=== PATIENT | female | born 1985 | race Two or more races ===

== ENCOUNTER 2018-02-09 15:30 | Emergency (ER) | payer OTHER ==
[2018-02-09 15:37] VITALS: BP 111/69
--- NOTE | 2018-02-09 15:53 | ER Document Report ---
HPI - HPI Patient complains to provider of: back pain Onset: Other - years Quality of pain: Sharp Severity: Moderate Pain Level: 3 Context: Patient presents emergency department with complaints of low back pain that radiates down both legs. Patient reports she has had back pain for years. She moved here from [place]. She denies recent injury. Denies straining her back at work. Denies urinary bowel incontinence or retention. Denies fever vomiting diarrhea. Denies dysuria. Patient reports she thinks she just moved wrong and she is having a sharp pain that goes down both legs. She reports this is her typical back pain flare up. Associated Symptoms: None Exacerbated by: Denies Relieved by: Denies Similar symptoms previously: Yes Recently seen / treated by doctor: No - REPRODUCTIVE LMP: 01/26/18 Past Medical History - General Information source: Patient Last Menstrual Period: last month, denies - Social History Smoking Status: Unknown if Ever Smoked Cigarette use (# per day): No Frequency of alcohol use: None Drug Abuse: None Occupation: [employer] Family History: DM Patient has suicidal ideation: No Patient has homicidal ideation: No Pulmonary Medical History: Reports: Hx Asthma Surgical Hx: Negative Vertical Provider Document - CONSTITUTIONAL Agree With Documented VS: Yes Exam Limitations: No Limitations General Appearance: WD/WN, No Apparent Distress - INFECTION CONTROL TRAVEL OUTSIDE OF THE U.S. IN LAST 30 DAYS: No - HEENT HEENT: Atraumatic, Normocephalic - NECK Neck: Normal Inspection, Supple. negative: Lymphadenopathy-Left, Lymphadenopathy-Right - RESPIRATORY Respiratory: Breath Sounds Normal, No Respiratory Distress, Chest Non-Tender - CARDIOVASCULAR Cardiovascular: Regular Rate - GI/ABDOMEN Gastrointestinal: Abdomen Soft, Abdomen Non-Tender - BACK Back: Normal Inspection - No obvious deformity good distal movement sensation reports low midline back pain radiating to both legs. Full range of motion, reflexes intact - MUSCULOSKELETAL/EXTREMETIES Musculoskeletal/Extremeties: [place] - NEURO Level of Consciousness: Awake, Alert, Appropriate Motor/Sensory: No Motor Deficit - DERM Integumentary: Warm, Dry Adult Front & Back Diagram: 1 - reports pain 2 - radiates down bilateral legs 3 - radiates lorena legs Course - Re-evaluation Re-evalutation: 02/09/18 16:11 pt provided with list of pcp. instructed on tylenol or motrin. - Vital Signs Vital signs: Temp Pulse Resp BP Pulse Ox 99.1 F 95 18 111/69 98 02/09/18 15:36 02/09/18 15:36 02/09/18 15:36 02/09/18 15:36 02/09/18 15:36 Discharge - Discharge Clinical Impression: Chronic back pain Condition: Stable Instructions: Family Physicians / Practices, Ice Packs ([facility]), Low Back Pain ( [facility]), Warm Packs ([facility]) Additional Instructions: *You have been evaluated for chronic back pain *Take tylenol or motrin as indicated for pain *Rest/Ice packs then warm packs as indicated *Follow up with a primary care provider within one week for recheck *Return to ED for worsening condition, changes, needs
== END 2018-02-09 16:05 | disposition home or self-care (01) ==
LOC: ER 15:30
DX: G89.29 Other chronic pain (principal); M54.5 Low back pain; J45.909 Unspecified asthma, uncomplicated
CPT/HCPCS: 99283

== ENCOUNTER 2018-10-06 18:13 | Emergency (ER) | payer OTHER ==
[2018-10-06] MEDS ORDERED: ONDANSETRON HCL INJ/PF 4 MG/2 ML SDV IV ONE (18:50)
[2018-10-06] MEDS ORDERED: KETOROLAC TROMETHAMINE INJ/PF 30 MG/1 ML SDV IV ONE (18:50)
[2018-10-06] MEDS ORDERED: NORMAL SALINE 1000 ML 1,000 ML IV ONE (18:52)
[2018-10-06 18:54] LABS: ABSOLUTE BASOPHILS # (AUTO) 0.1 10^3/uL (0.0-0.2); ABSOLUTE EOSINOPHILS # (AUTO) 0.3 10^3/uL (0.0-0.6); ABSOLUTE LYMPHOCYTES (AUTO) 2.6 10^3/uL (0.5-4.7); ABSOLUTE MONOCYTES (AUTO) 0.8 10^3/uL (0.1-1.4); ABSOLUTE NEUT (AUTO) 8.5 10^3/uL (1.7-8.2); BASOPHILS % (AUTO) 0.4 % (0-2); EOSINOPHILS % (AUTO) 2.4 % (0-6); HEMOGLOBIN 12.1 g/dL (12.0-15.5); LYMPHOCYTES % (AUTO) 21.1 % (13-45); MEAN CORPUSCULAR HGB CONC 32.6 g/dL (32.0-36.0); MEAN CORPUSCULAR VOLUME 83 fl (80-97); MONOCYTES % (AUTO) 6.7 % (3-13); PLATELET COUNT 254 10^3/uL (150-450); RED BLOOD COUNT 4.47 10^6/uL (3.72-5.28); RED CELL DISTRIBUTION WIDTH 13.1 % (11.5-14.0); SEGMENTED NEUTROPHILS % (AUTO) 69.4 % (42-78); TOTAL CELLS COUNTED % (AUTO) 100 %; WHITE BLOOD COUNT 12.2 10^3/uL (4.0-10.5)
--- NOTE | 2018-10-06 18:54 | ER Document Report ---
ED General - General Chief Complaint: Abdominal Pain Stated Complaint: ABDOMINAL PAIN Time Seen by Provider: 10/06/18 18:37 Notes: Patient is a 33-year old female without chronic medical problems, no prior abdominal surgical history, presents complaining of right flank and right upper abdominal pain that started earlier today while at work. Patient states that this started after she bent over, felt like she pulled something and has been co nstant since that time. Notes a throbbing, aching, constant pain. Moving seems to worsen the pain. Nothing improves the pain and she has tried Tylenol for relief. No history of similar symptoms in the past. States that she did have one episode of nausea and vomiting. Denies pleuritic pain or shortness of breath. No history of DVT or pulmonary embolus. Does not take any form of estrogen. Has not seen her primary care doctor regarding today's concerns. TRAVEL OUTSIDE OF THE U.S. IN LAST 30 DAYS: No - Related Data Allergies/Adverse Reactions: No Known Allergies Allergy (Verified 02/09/18 15:31) Past Medical History - General Information source: Patient - Social History Smoking Status: Never Smoker Chew tobacco use (# tins/day): No Frequency of alcohol use: None Drug Abuse: None Lives with: Family Family History: DM Patient has suicidal ideation: No Patient has homicidal ideation: No Pulmonary Medical History: Reports: Hx Asthma Renal/ Medical History: Denies: Hx Peritoneal Dialysis Review of Systems - Review of Systems Notes: Constitutional: Negative for fever. HENT: Negative for sore throat. Eyes: Negative for visual changes. Cardiovascular: Negative for chest pain. Respiratory: Negative for shortness of breath. Gastrointestinal: Positive for abdominal pain, flank pain and vomiting Genitourinary: Negative for dysuria. Musculoskeletal: Negative for back pain. Skin: Negative for rash. Neurological: Negative for headaches, weakness or numbness. 10 point ROS negative except as marked above and in HPI. Physical Exam - Vital signs Vitals: Resp 19 10/06/18 18:27 Interpretation: Normal Notes: PHYSICAL EXAMINATION: GENERAL: Appears moderately uncomfortable but in no acute distress HEAD: Atraumatic, normocephalic. EYES: Pupils equal round and reactive to light, extraocular movements intact, sclera anicteric, conjunctiva are normal. ENT: nares patent, oropharynx clear without exudates. Moderately dry mucous membranes. NECK: Normal range of motion, supple without lymphadenopathy LUNGS: Breath sounds clear to auscultation bilaterally and equal. No wheezes rales or rhonchi. HEART: Regular rate and rhythm without murmurs ABDOMEN: Soft, mild tenderness the right upper quadrant and right flank but no other localized areas of tenderness, normoactive bowel sounds. No guarding, no rebound. No masses appreciated. EXTREMITIES: Normal range of motion, no pitting or edema. No cyanosis. NEUROLOGICAL: No focal neurological deficits. Moves all extremities spontaneously and on command. PSYCH: Normal mood, normal affect. SKIN: Warm, Dry, normal turgor, no rashes or lesions noted. Course - Re-evaluation Re-evalutation: 10/06/18 18:53 Patient presents with right upper quadrant and right flank pain with associated nausea and vomiting that started earlier today, has been ongoing since that time. On my assessment the patient has focal tenderness the right upper quadrant but none to the right flank. The patient reports that she had multiple episodes of vomiting earlier today. No obvious trigger for today's symptoms. Patient's vitals are within acceptable limits at the time of my assessment. PERC criteria negative, low clinical suspicion for acute pulmonary embolus. Will proceed with right upper quadrant ultrasound, labs, symptomatic control and reassess. 10/06/18 21:24 Patient is completely pain-free. Has tolerated oral intake without difficulty. Denies any ongoing symptoms. Right upper quadrant ultrasound is normal. Labs are unremarkable without evidence of any acute findings and a possible urinary tract infection which could account for some of the patient's flank tenderness although does not show findings consistent with pyelonephritis. Urine culture has been sent. Patient be started on oral cephalexin. At this time will discharge with return precautions and follow-up recommendations. Verbal discharge instructions given a the bedside and opportunity for questions given. Medication warnings reviewed. Patient is in agreement with this plan and has verbalized understanding of return precautions and the need for primary care follow-up in the next 24-72 hours. - Vital Signs Vital signs: Temp Pulse Resp BP Pulse Ox 98.8 F 17 124/68 99 10/06/18 18:32 10/06/18 22:02 10/06/18 22:02 10/06/18 22:02 - Laboratory Result Diagrams: 10/06/18 16:25 10/06/18 16:25 Laboratory results interpreted by me: 10/06/18 10/06/18 10/06/18 16:25 16:25 18:25 WBC 12.2 H Absolute Neutrophils 8.5 H Glucose 116 H Total Bilirubin 0.1 L Urine Blood LARGE H Ur Leukocyte Esterase MODERATE H - Diagnostic Test Radiology reviewed: Reports reviewed Discharge - Discharge Clinical Impression: Right flank pain Nausea and vomiting Qualifiers: Vomiting type: unspecified Vomiting Intractability: non-intractable Qualified Code(s): R11.2 - Nausea with vomiting, unspecified Urinary tract infection Qualifiers: Urinary tract infection type: acute cystitis Hematuria presence: with hematuria Qualified Code(s): N30.01 - Acute cystitis with hematuria Condition: Good Disposition: HOME, SELF-CARE Additional Instructions: You have been seen in the Emergency Department (ED) for abdominal pain. Your evaluation did not identify a clear cause of your symptoms but was generally reassuring. Please follow up with your doctor as soon as possible regarding today's emergent visit and the symptoms that are bothering you. Return to the ED if your abdominal pain worsens or fails to improve, you develop bloody vomiting, bloody diarrhea, you are unable to tolerate fluids due to vomiting, fever greater than 101, or other symptoms that concern you. Your urine shows findings consistent with a urinary tract infection. Please take all the antibiotics as directed even if your symptoms have improved. Return to emergency room if you develop fever >101F, persistent vomiting, become lethargic, have severe pain in your sides, or any other symptoms that are concerning to you. Prescriptions: Cephalexin Monohydrate [Keflex 500 mg Capsule] 500 mg PO Q6H 5 Days capsule
[2018-10-06 18:58] LABS: ALANINE AMINOTRANSFERASE 26 U/L (9-52); ALBUMIN 4.8 g/dL (3.5-5.0); ALKALINE PHOSPHATASE 82 U/L (38-126); ANION GAP 11 (5-19); ASPARTATE AMINO TRANSFERASE 28 U/L (14-36); BILIRUBIN,DIRECT 0.1 mg/dL (0.0-0.4); BILIRUBIN,TOTAL 0.1 mg/dL (0.2-1.3); BLOOD UREA NITROGEN 11 mg/dL (7-20); CALCIUM 9.8 mg/dL (8.4-10.2); CARBON DIOXIDE 27 mmol/L (22-30); CHLORIDE 102 mmol/L (98-107); GLUCOSE 116 mg/dL (75-110); LIPASE 134.9 U/L (23-300); SODIUM 140.1 mmol/L (137-145); TOTAL PROTEIN 7.8 g/dL (6.3-8.2)
[2018-10-06 19:39] LABS: APPEARANCE,URINE CLEAR; BILIRUBIN,URINE NEGATIVE (NEGATIVE); COLOR,URINE COLORLESS; GLUCOSE, URINE NEGATIVE (NEGATIVE); KETONES,URINE NEGATIVE (NEGATIVE); LEUKOCYTE ESTERASE,URINE MODERATE (NEGATIVE); NITRITE,URINE NEGATIVE (NEGATIVE); PROTEIN,URINE NEGATIVE (NEGATIVE); URINE SPECIFIC GRAVITY 1.002; UROBILINOGEN,URINE NEGATIVE mg/dL (<2.0)
--- NOTE | 2018-10-06 20:46 | RADIOLOGY REPORT (SQ) ---
EXAM DESCRIPTION: US ABDOMEN LIMITED COMPLETED DATE/TME: 10/06/2018 18:50 CLINICAL HISTORY: 33 years, Female, ruq pain Findings: Aorta and IVC are within normal limits. Liver is within normal limits with no focal lesions. Portal vein is patent with hepatopedal flow. Gallbladder is unremarkable with no evidence for calculus, wall thickening or pericholecystic fluid. No significant biliary dilatation with CBD measuring 2 mm. No right hydronephrosis. No right upper quadrant ascites. IMPRESSION: No evidence for cholelithiasis or cholecystitis. No acute pathology.
[2018-10-06] MEDS ORDERED: CEPHALEXIN 500 MG CAPSULE PO ONE (21:25)
[2018-10-06 22:13] VITALS: BP 124/68
== END 2018-10-06 22:21 | disposition home or self-care (01) ==
LOC: ER 18:13
DX: N30.01 Acute cystitis with hematuria (principal); R10.11 Right upper quadrant pain; R11.2 Nausea with vomiting, unspecified
CPT/HCPCS: 99284; 96361; 96374; 96375; 36415; 87086; 83690; 84703; 85025; 87088; 80053; 81001; 87186; 76705; J1885; J2405; J7030

== ENCOUNTER 2018-11-12 16:26 | Emergency (ER) | payer SELFPAY ==
[2018-11-12] MEDS ORDERED: ONDANSETRON HCL INJ/PF 4 MG/2 ML SDV IV ONE (17:59)
[2018-11-12] MEDS ORDERED: MORPHINE SULFATE 10 MG/ML INJ IV ONE ×3 (18:06→22:02)
--- NOTE | 2018-11-12 18:06 | ER Document Report ---
ED Medical Screen (RME) - General Chief Complaint: Head Injury with LOC Stated Complaint: FALL Time Seen by Provider: 11/12/18 17:49 Mode of Arrival: Ambulatory Information source: Patient TRAVEL OUTSIDE OF THE U.S. IN LAST 30 DAYS: No - HPI Patient complains to provider of: left eye injury Onset: Just prior to arrival Notes: 11/12/18 18:03 Patient here with complaints of left orbital pain after slipping and falling at home on some water and striking her left eye on the counter. She states that she had loss of consciousness with this. She complained of significant left eye pain. She states that she felt like she could see out of the eye before it swelled shut. She has had several episodes of nausea vomiting. She denies any neck, back, chest, abdominal pain. States that she has photophobia, but this is chronic. This started prior to the injury. She denies any other injuries or complaints. Exam nontoxic, no distress. Large left orbital contusion/hematoma with tenderness. No laceration. Extremely difficult to evaluate the globe due to pain. I attempted to look at the eye more thoroughly and the patient started vomiting. No cervical spine tenderness. No focal neurological deficits. Not able to fully evaluate the left globe. Plan CT of the orbit and brain. IV for Zofran and pain medication. An initial examination was made on the patient as part of the triage process, and it was determined a more comprehensive evaluation was necessary. Initial labs were ordered and patient was transferred to another provider in the ED who assumed care and finished evaluation and plan. - Related Data Allergies/Adverse Reactions: No Known Allergies Allergy (Verified 02/09/18 15:31) Past Medical History - Social History Frequency of alcohol use: Heavy Drug Abuse: None Pulmonary Medical History: Reports: Hx Asthma Renal/ Medical History: Denies: Hx Peritoneal Dialysis Physical Exam - Vital signs Vitals: Temp Pulse Resp BP Pulse Ox 98.0 F 64 18 132/89 H 100 11/12/18 17:03 11/12/18 17:03 11/12/18 17:03 11/12/18 17:03 11/12/18 17:03 Course - Vital Signs Vital signs: Temp Pulse Resp BP Pulse Ox 98.0 F 64 18 132/89 H 100 11/12/18 17:03 11/12/18 17:03 11/12/18 17:03 11/12/18 17:03 11/12/18 17:03
--- NOTE | 2018-11-12 19:15 | RADIOLOGY REPORT (SQ) ---
EXAM DESCRIPTION: CT HEAD WITHOUT COMPLETED DATE/TIME: 11/12/2018 6:51 pm REASON FOR STUDY: head injury COMPARISON: None. TECHNIQUE: Axial images acquired through the brain without intravenous contrast. Images reviewed wi th bone, brain and subdural windows. Additional sagittal and coronal reconstructions were generated. Images stored on PACS. All CT scanners at this facility use dose modulation, iterative reconstruction, and/or weight based d osing when appropriate to reduce radiation dose to as low as reasonably achievable (ALARA). [facility]: Dose Right [facility]: CareDose [facility]: Dose Right [facility]: Teradose 4D [facility]: Voucherlink RADIATION DOSE: CT Rad equipment meets quality standard of care and radiation dose reduction techniq ues were employed. CTDIvol: 53.2 mGy. DLP: 1070 mGy-cm. mGy. LIMITATIONS: None. FINDINGS: VENTRICLES: Normal size and contour. CEREBRUM: No masses. No hemorrhage. No midline shift. No evidence for acute infarction. Normal gra y/white matter differentiation. No areas of low density in the white matter. CEREBELLUM: No masses. No hemorrhage. No alteration of density. No evidence for acute infarction. EXTRAAXIAL SPACES: No fluid collections. No masses. ORBITS AND GLOBE: No intra- or extraconal masses. Normal contour of globe without masses. CALVARIUM: Fracture of the floor of the left orbit without entrapment of the extra-ocular muscle. Min imally depressed fracture of the left lamina papyracea. No additional fracture is visualized. PARANASAL SINUSES: Hyperattenuating air-fluid level of the left maxillary sinus which may represent b lood products. Mucoperiosteal thickening of the ethmoid air cells. SOFT TISSUES: Extensive left periorbital soft tissue swelling extending inferiorly over the left maxi llary sinus. OTHER: No other significant finding. IMPRESSION: 1. No acute intracranial hemorrhage. 2. Fracture of the floor of the left orbit with blood products within the left maxillary sinus. 3. Minimally depressed fracture of the left lamina papyracea. 4. Extensive left periorbital soft tissue swelling. EVIDENCE OF ACUTE STROKE: NO. COMMENT: Quality ID # [id number]: Final reports with documentation of one or more dose reduction techniques (e.g., Automated exposure control, adjustment of the mA and/or kV according to patient size, use of iterative reconstruction technique) TECHNICAL DOCUMENTATION: JOB ID: [id number] [employer]- All Rights Reserved Reading location - IP/workstation name: [email or web address]
[2018-11-12] MEDS ORDERED: ONDANSETRON HCL INJ/PF 4 MG/2 ML SDV ONE (20:43)
[2018-11-12] MEDS ORDERED: PROMETHAZINE HCL INJ 25 MG/1 ML VIAL IV ONE (22:02)
--- NOTE | 2018-11-13 01:50 | ER Document Report ---
ED General - General Chief Complaint: Head Injury with LOC Stated Complaint: FALL Time Seen by Provider: 11/12/18 17:49 Primary Care Provider: AROLDO PRADO DO [ACTIVE STAFF] - Follow up tomorrow MARCO FLOWERS MD [ACTIVE STAFF] - Follow up tomorrow ARDEN DEL ROSARIO MD [ACTIVE STAFF] - Follow up in 3-5 days Mode of Arrival: Ambulatory Notes: Patient is a pleasant 33-year-old female who presents with complaint of walking into the kitchen and slipping on a wet spot in the landing and hitting the left side of face and head. She denies being any blood thinning medications. She complains of pain around the left eye. She says the eye itself is not very painful but she feels as if there is some pressure around the eye. She denies other complaints at this time. Eyes any neck pain or back pain. No extremity pain or injuries. TRAVEL OUTSIDE OF THE U.S. IN LAST 30 DAYS: No - Related Data Allergies/Adverse Reactions: No Known Allergies Allergy (Verified 02/09/18 15:31) Past Medical History - General Information source: Patient - Social History Smoking Status: Never Smoker Frequency of alcohol use: Occasional Drug Abuse: None Family History: DM Patient has suicidal ideation: No Patient has homicidal ideation: No Pulmonary Medical History: Reports: Hx Asthma Renal/ Medical History: Denies: Hx Peritoneal Dialysis Review of Systems - Review of Systems Notes: My Normal Review Basic REVIEW OF SYSTEMS: CONSTITUTIONAL : Denies fever, chills, or sweats. Denies recent illness. EENT: Pain to left side of face. MUSCULOSKELETAL: No neck or back pain SKIN: Denies rash or skin lesions. HEMATOLOGIC : Denies easy bruising or bleeding. NEUROLOGICAL: Probable loss of consciousness. Has a headache. Denies weakness or paralysis or loss of use of either side. Denies problems with gait or speech. Denies sensory or motor loss. ALL OTHER SYSTEMS REVIEWED AND NEGATIVE. Physical Exam - Vital signs Vitals: Temp Pulse Resp BP Pulse Ox 98.0 F 64 18 132/89 H 100 11/12/18 17:03 11/12/18 17:03 11/12/18 17:03 11/12/18 17:03 11/12/18 17:03 - Notes Notes: General Appearance: Well nourished, alert, cooperative, no acute distress, mild obvious discomfort. Vitals: reviewed, See vital signs table. Head: Mild swelling around the left eye. No swelling around the jaw or lower face. Eyes: PERRL, EOMI, patient does have some subconjunctival hemorrhage of the left eye. Pupils normal size and shape. Superbly reactive to light. She has good extraocular motion in all directions. Eyelids are swollen. Initial intraocular pressure is 30. Mouth: No decreasd moisture Neck: Supple, no neck tenderness, No neck swelling Extremities: good pulses in all extremities, no swelling or tenderness in the extremities Skin: warm, dry, appropriate color, no rash Neuro: speech clear, oriented x 3, normal affect, responds appropriately to ques tions. Renal nerves II through XII are intact. Patient moves all extremities without difficulty. Distal sensation intact. Course - Re-evaluation Re-evalutation: 11/13/18 01:48 Patient does have orbital floor fracture and lamina papyracea fracture of the left eye. Eye is swollen shut but was able to open the eyelid using modified paperclips. Patient says she has some slight blurred blurred vision. She has little bit of pain with extraocular motion but does have full extraocular motion. I did check the patient's eye pressure. I did two 5 intraocular pressure averages. They were 30 and 31. I do not have ophthalmology push button switch assembler and therefore I am calling to speak with ophthalmology at [facility]. 11/13/18 02:53 Repeat eye pressure is now 25. Not yet heard back from ophthalmology at [facility]. The [facility] transfer center jukebox operator says they are having a hard time getting touch with him. I therefore have called the transfer center at [facility] and they will page ophthalmology for me. 11/13/18 03:28 I just spoke with [facility]. They are also having difficulties can touch with their smoke chaser, Dr. Tan. They said they will continue to try to call in patient. 11/13/18 04:09 [facility] did call back and Dr. Jo, ophthamologist, was very kind to take my phone call. I did review the patient's eye pressures with him in the patient's exam. He says that it is okay to send the patient home but she should be reevaluated in the next 24 hours. He said that the patient could follow-up with him in the afternoon it keep her retinal [phone]. I did speak with Dr. Monreal, ear nose and throat doctor. He says he was agreeable to see the patient in his office and to have the patient call the office for follow-up in regards to the facial fractures. He did recommend ophthalmology consult which I did do with Dr. Jo. I also gave the patient the number to her to local smoke chaser in case it is difficult for her to go to [facility]. I informed her not to blow her nose. Informed her not to sneeze with mouth open. I told her that she must return to ER immediately if she has difficulty moving left eye as this would be a sign of entrapment. Encouraged to return to ER immediately if she has worsening pain. Patient agrees with plan will be discharged home. Dictation of this chart was performed using voice recognition software; therefore, there may be some unintended grammatical errors. 11/13/18 04:10 - Vital Signs Vital signs: Temp Pulse Resp BP Pulse Ox 97.8 F 75 14 107/67 100 11/13/18 04:31 11/13/18 04:31 11/13/18 00:24 11/13/18 04:31 11/13/18 04:31 Discharge - Discharge Clinical Impression: Orbital floor fracture Qualifiers: Encounter type: initial encounter Fracture type: closed Laterality: left Qualified Code(s): S02.32XA - Fracture of orbital floor, left side, initial e ncounter for closed fracture Condition: Good Disposition: HOME, SELF-CARE Additional Instructions: You have fractures to the bones of the face. Please follow-up with a local EAR nose and throat doctor. His name is Dr. Del Rosario. Call his office tomorrow morning to make a follow-up appointment. He will likely see you in the next few days in the office. I also spoke with Dr. Jo, ophthamologist, in regards to your eye. This is because you did have some direct trauma to your eye and you had some pressure behind your eye. Your eye does need to be rechecked within [address] Jo is happy to recheck you his office. His office is [facility] in [place] and his phone number is [phone]. If you are unable to go to [place] there are two local ophthalmologists. There names are are Dr. Prado and Dr. Flowers. I will provide their numbers below. You can try to call their office this morning to see if they can get you in today. If they are unable to get you in today then you should follow-up with Dr. Jo. If you are not able to follow-up with anybody then you should return to the ER for reevaluation and recheck of the pressures of your eye. Return to ER immediately if you have worsening pain, fevers, or are unable to move your left eye in all directions. Please continue to use cold packs over the left side of your face for 20 minutes at a time. Do not blow your nose. Please open your mouth when you sneeze so that you sneeze out your mouth. Please be aware that [place] does have Tylenol (acetaminophen) in it. Please make sure you do not take more than 4000 mg of acetaminophen a day. Do not drive or care for children after you have taken this medication they will make you sleepy and sometimes impair judgment. Forms: Return to Work Referrals: ARDEN DEL ROSARIO MD [ACTIVE STAFF] - Follow up in 3-5 days AROLDO PRADO DO [ACTIVE STAFF] - Follow up tomorrow MARCO FLOWERS MD [ACTIVE STAFF] - Follow up tomorrow
[2018-11-13] MEDS ORDERED: HYDROCODONE/ACETAMINOPHEN 5-325 MG (6 TAB/ER DISP) PO PRN (03:59)
[2018-11-13 04:34] VITALS: BP 107/67
== END 2018-11-13 04:35 | disposition home or self-care (01) ==
LOC: ER 16:26
DX: S02.32XA Fracture of orbital floor, left side, initial encounter for closed fracture (principal); R51 Headache; H53.8 Other visual disturbances; W01.198A Fall on same level from slipping, tripping and stumbling with subsequent striking against other object, initial encounter; J45.909 Unspecified asthma, uncomplicated
CPT/HCPCS: 96376; 99284; 96374; 96375; 70450; J2270; J2550; J2405

== ENCOUNTER 2019-09-21 18:48 | Emergency (ER) | payer SELFPAY ==
--- NOTE | 2019-09-21 20:05 | ER Document Report ---
ED Medical Screen (RME) - General Chief Complaint: Abdominal Pain Stated Complaint: UPPER RIGHT ABDOMINAL PAIN Time Seen by Provider: 09/21/19 20:01 Primary Care Provider: ARDEN JACOBO MD [Primary Care Provider] - Follow up as needed Information source: Patient Notes: Patient presents complaint of right upper quadrant abdominal pain that started yesterday. Patient denies any nausea vomiting or diarrhea. Patient denies any urinary symptoms. No fever. Patient does report mild cough. I have greeted and performed a rapid initial assessment of this patient. A comprehensive ED assessment and evaluation of the patient, analysis of test results and completion of the medical decision making process will be conducted by additional ED providers. TRAVEL OUTSIDE OF THE [place] IN LAST 30 DAYS: No - Related Data Allergies/Adverse Reactions: No Known Allergies Allergy (Verified 09/21/19 19:55) Past Medical History Pulmonary Medical History: Reports: Hx Asthma Renal/ Medical History: Denies: Hx Peritoneal Dialysis Physical Exam - Vital signs Vitals: Temp Pulse Resp BP Pulse Ox 97.8 F 75 16 117/77 99 09/21/19 18:57 09/21/19 18:57 09/21/19 18:57 09/21/19 18:57 09/21/19 18:57 - Abdominal Tenderness: Tender - Right upper quadrant Course - Vital Signs Vital signs: Temp Pulse Resp BP Pulse Ox 97.8 F 75 16 117/77 99 09/21/19 18:57 09/21/19 18:57 09/21/19 18:57 09/21/19 18:57 09/21/19 18:57 Doctor's Discharge - Discharge Referrals: ARDEN JACOBO MD [Primary Care Provider] - Follow up as needed
[2019-09-21 20:55] LABS: ABSOLUTE EOSINOPHILS # (AUTO) 0.1 10^3/uL (0.0-0.6); ABSOLUTE LYMPHOCYTES (AUTO) 1.7 10^3/uL (0.5-4.7); ABSOLUTE MONOCYTES (AUTO) 0.5 10^3/uL (0.1-1.4); ABSOLUTE NEUT (AUTO) 2.7 10^3/uL (1.7-8.2); BASOPHILS % (AUTO) 0.5 % (0-2); EOSINOPHILS % (AUTO) 2.2 % (0-6); HEMATOCRIT 36.1 % (36.0-47.0); HEMOGLOBIN 12.4 g/dL (12.0-15.5); LYMPHOCYTES % (AUTO) 33.6 % (13-45); MEAN CORPUSCULAR HEMOGLOBIN 28.4 pg (27.0-33.4); MEAN CORPUSCULAR HGB CONC 34.4 g/dL (32.0-36.0); MEAN CORPUSCULAR VOLUME 83 fl (80-97); MONOCYTES % (AUTO) 10.3 % (3-13); PLATELET COUNT 193 10^3/uL (150-450); RED BLOOD COUNT 4.36 10^6/uL (3.72-5.28); RED CELL DISTRIBUTION WIDTH 13.1 % (11.5-14.0); SEGMENTED NEUTROPHILS % (AUTO) 53.4 % (42-78); TOTAL CELLS COUNTED % (AUTO) 100 %; WHITE BLOOD COUNT 5.1 10^3/uL (4.0-10.5)
--- NOTE | 2019-09-21 20:55 | RADIOLOGY REPORT (SQ) ---
EXAM DESCRIPTION: XR CHEST 2 VIEWS COMPLETED DATE/TME: 09/21/2019 20:04 CLINICAL HISTORY: 34 years Female RUQ pain, cough COMPARISON: None. FINDINGS: The cardiomediastinal silhouette appears unremarkable. No consolidating infiltrates or pleural effusions. No pneumothorax. IMPRESSION: No acute abnormality is identified.
[2019-09-21 20:59] LABS: APPEARANCE,URINE SLIGHTLY-CLOUDY; BILIRUBIN,URINE NEGATIVE (NEGATIVE); COLOR,URINE YELLOW; GLUCOSE, URINE NEGATIVE (NEGATIVE); KETONES,URINE NEGATIVE (NEGATIVE); LEUKOCYTE ESTERASE,URINE NEGATIVE (NEGATIVE); NITRITE,URINE NEGATIVE (NEGATIVE); PROTEIN,URINE NEGATIVE (NEGATIVE); URINE SPECIFIC GRAVITY 1.013; UROBILINOGEN,URINE NEGATIVE mg/dL (<2.0)
[2019-09-21 21:15] LABS: ALBUMIN 4.7 g/dL (3.5-5.0); ALKALINE PHOSPHATASE 68 U/L (38-126); ANION GAP 10 (5-19); ASPARTATE AMINO TRANSFERASE 24 U/L (14-36); BILIRUBIN,DIRECT 0.3 mg/dL (0.0-0.4); BILIRUBIN,TOTAL 0.3 mg/dL (0.2-1.3); BLOOD UREA NITROGEN 8 mg/dL (7-20); CALCIUM 9.7 mg/dL (8.4-10.2); CARBON DIOXIDE 30 mmol/L (22-30); CHLORIDE 100 mmol/L (98-107); GLUCOSE 97 mg/dL (75-110); POTASSIUM 4.2 mmol/L (3.6-5.0); TOTAL PROTEIN 7.7 g/dL (6.3-8.2)
--- NOTE | 2019-09-21 21:47 | RADIOLOGY REPORT (SQ) ---
EXAM DESCRIPTION: Right upper quadrant abdominal ultrasound CLINICAL HISTORY: 34 years Female; RUQ pain TECHNIQUE: Abdominal ultrasound was performed. COMPARISON: Right upper quadrant ultrasound October 06, 2018 FINDINGS: Pancreas: visualized portions are unremarkable. Liver: Measures 13.4 cm in length. Echogenicity is unremarkable. Portal vein is patent with hepatopedal flow. Overall the liver is not well seen. Gallbladder: Views are limited. No definite stones. No pericholecystic fluid. No sonographic Kenney's. Common bile duct: 1.9 mm. Right kidney: Measures 11.1 x 4.4 x 4.6 cm. Echogenicity is normal.. No hydronephrosis. Aorta:Visualized portions are within normal limits. IVC: Visualized portions are within normal limits. Ascites: No free fluid. IMPRESSION: No acute process. No gallstones.
[2019-09-22 00:19] VITALS: BP 110/72
[2019-09-22] MEDS ORDERED: DEXTROSE 5%-LACTATED RINGERS 1,000 ML IV ONE (01:39)
[2019-09-22] MEDS ORDERED: MORPHINE SULFATE 10 MG/ML INJ IV ONE (01:41)
[2019-09-22] MEDS ORDERED: ONDANSETRON HCL INJ/PF 4 MG/2 ML SDV IV ONE (01:42)
--- NOTE | 2019-09-22 04:58 | RADIOLOGY REPORT (SQ) ---
CT ABDOMEN AND PELVIS WITH INTRAVENOUS CONTRAST: 09/22/2019 3:53 AM [facility] ORDER SCHEDULER HISTORY: 34-year old with right upper quadrant abdominal pain. COMPARISON: None available TECHNIQUE: Axial contiguous images were obtained from the lung bases to the proximal femurs with intravenous intravenous contrast administered. Oral contrast was also given to the patient. Sagittal and coronal reconstructions were also obtained and reviewed. This exam was performed according to our departmental dose-optimization program, which includes automated exposure control, adjustment of the mA and/or KV according to the patient's size and/or use of iterative reconstruction technique. FINDINGS: No focal consolidative airspace opacities are seen. No discrete pleural effusion is seen. The visualized hepatic parenchyma is unremarkable. No focal enhancing lesion is seen. The gallbladder demonstrates no evidence of calcified gallstones The spleen, pancreas, and adrenals are normal in size and contour. The kidneys demonstrate no evidence of hydronephrosis. Bladder is minimally distended, but grossly appears unremarkable. The uterus is present. The stomach is not well distended. The small bowel loops appear unremarkable. No pericolonic inflammatory stranding is seen. The appendix appears unremarkable. There is no evidence of pneumoperitoneum or free fluid. The aorta and IVC appear normal in size. No significantly enlarged lymph nodes are seen in the abdomen or pelvis. Review of the bone show no evidence of any suspicious lytic or blastic lesions. IMPRESSION: No acute process is seen within the abdomen or pelvis.
[2019-09-22] MEDS ORDERED: KETOROLAC TROMETHAMINE INJ/PF 30 MG/1 ML SDV IV ONE (05:24)
[2019-09-22] MEDS ORDERED: ACETAMINOPHEN 325 MG TABLET PO ONE (05:25)
--- NOTE | 2019-09-22 05:41 | ER Document Report ---
Entered by BEAR FELICIANO SCRIBE 09/22/19 0043 Acting as scribe for:JOEY TINSLEY MD ED General - General Chief Complaint: Flank Pain Stated Complaint: UPPER RIGHT ABDOMINAL PAIN Time Seen by Provider: 09/21/19 20:01 Primary Care Provider: ARDEN JACOBO MD [Primary Care Provider] - Follow up as needed Information source: Patient Notes: 34-year-old female presents to the emergency department with right flank pain that began last night. Patient describes the pain as sharp, 10/10, no radiation and in the RUQ. Patient reports cough and rhinorrhea. Patient denies trauma and pain with eating, Patient stated that the pain is worse with deep breaths, laugh ter and movement. Patient states that pain is better with sitting still. TRAVEL OUTSIDE OF THE [place] IN LAST 30 DAYS: No - Related Data Allergies/Adverse Reactions: No Known Allergies Allergy (Verified 09/21/19 19:55) Past Medical History - General Information source: Patient - Social History Smoking Status: Former Smoker Cigarette use (# per day): No Chew tobacco use (# tins/day): No Frequency of alcohol use: Occasional Family History: DM Patient has suicidal ideation: No Patient has homicidal ideation: No Pulmonary Medical History: Reports: Hx Asthma Review of Systems - Review of Systems Constitutional: denies: Chills, Fever EENT: See HPI, Nose discharge Cardiovascular: No symptoms reported Respiratory: See HPI, Cough, Hurts to breathe Gastrointestinal: See HPI, Abdominal pain Genitourinary: No symptoms reported Female Genitourinary: No symptoms reported Musculoskeletal: No symptoms reported Skin: No symptoms reported Hematologic/Lymphatic: No symptoms reported Neurological/Psychological: No symptoms reported -: Yes All other systems reviewed and negative Physical Exam - Vital signs Vitals: Temp Pulse Resp BP Pulse Ox 97.8 F 75 16 117/77 99 09/21/19 18:57 09/21/19 18:57 09/21/19 18:57 09/21/19 18:57 09/21/19 18:57 - Notes Notes: Physical Exam: General: Alert, appears well. HEENT: Normocephalic. Atraumatic. PERRL. Extraocular movements intact. O ropharynx clear. Neck: Supple. Non-tender. Respiratory: No respiratory distress. Clear and equal breath sounds bilaterally. Cardiovascular: Regular rate and rhythm. Abdominal: RUQ tenderness to palpation. No distension. Normal Bowel Sounds. Back: No gross abnormalities. Extremities: Moves all four extremities. Upper extremities: Normal inspection. Normal ROM. Lower extremities: Normal inspection. No edema. Normal ROM. Neurological: Normal cognition. AAOx4. Normal speech. Psychological: Normal affect. Normal Mood. Skin: Warm. Dry. Normal color. Course - Vital Signs Vital signs: Temp Pulse Resp BP Pulse Ox 98.3 F 67 18 110/72 99 09/21/19 23:47 09/21/19 23:47 09/21/19 23:47 09/21/19 23:47 09/21/19 23:47 - Laboratory Result Diagrams: 09/21/19 20:41 09/21/19 20:41 Laboratory results interpreted by me: 09/21/19 19:00 Urine Blood SMALL H 09/22/19 05:27 Patient has a small amount of blood noted in urinalysis. - Diagnostic Test Radiology reviewed: Image reviewed, Reports reviewed Radiology results interpreted by me: 09/22/19 05:32 Ultrasound right upper quadrant abdomen disclose no acute process. Organs evaluated and included gallbladder liver and kidney. Chest x-ray disclosed no acute process CT scan of abdomen and pelvis with oral and IV contrast disclose no acute inflammatory or obstructive disease process in the abdomen. Discharge - Discharge Clinical Impression: Abdominal wall pain in right upper quadrant Condition: Stable Disposition: HOME, SELF-CARE Instructions: Abdominal Pain ([facility]), Toradol Injection ([facility]) Additional Instructions: Abdominal Pain There are many causes of abdominal pain. Pain can mean a serious problem requiring surgery (such as appendicitis). It can also be an innocent problem that goes away on its own (such as a viral infection). Often, time must pass to determine the cause of pain. The physician does not feel that hospitalization is necessary, at present. Things may change within the next 24 hours. Call the doctor or come back for re- examination if any problems occur, such as: (1) Pain that becomes more severe, steady, or becomes concentrated in one specific area. Also, pain that is more severe with movement or coughing. (2) Vomiting that persists or becomes more frequent. (3) Blood in the vomitus, urine, or bowel movements. Blood in the stool may have a tarry or black appearance. (4) Shaking chills or fever greater than 100 degrees F. (5) The abdomen becomes more distended or swollen. (6) Bowel movements cease. (7) Failure to improve as expected. Referrals: ARDEN JACOBO MD [Primary Care Provider] - Follow up as needed I personally performed the services described in the documentation, reviewed and edited the documentation which was dictated to the scribe in my presence, and it accurately records my words and actions.
== END 2019-09-22 06:00 | disposition home or self-care (01) ==
LOC: ER 18:48
DX: R10.11 Right upper quadrant pain (principal); Z87.891 Personal history of nicotine dependence
CPT/HCPCS: 99284; 96361; 96374; 96375; 36415; 83690; 84703; 85025; 80053; 81001; 71046; 76705; 74177; J1885; J2270; J2405; J7121

== ENCOUNTER 2020-02-09 11:59 | Emergency (ER) | payer SELFPAY ==
--- NOTE | 2020-02-09 12:41 | ER Document Report ---
ED Medical Screen (RME) - General Chief Complaint: Vaginal Bleeding Stated Complaint: ABNORMAL VAGINAL BLEEDING Time Seen by Provider: 02/09/20 12:34 Primary Care Provider: ARDEN JACOBO MD [Primary Care Provider] - Follow up as needed Notes: Patient is a 34-year-old female presents emergency department with a chief complaint of vaginal bleeding. Patient reports she has had a constant vaginal bleeding since October. Patient reports she was seen at [facility] and was offered control medication to help with bleeding but she refused as she was attempting to get . Patient reports starting a few weeks ago she started to have large blood clots. Patient reports they are the size of golf balls. Patient denies pain. Patient denies nausea, vomiting or diarrhea. Denies concern for STD. TRAVEL OUTSIDE OF THE [place] IN LAST 30 DAYS: No - Related Data Allergies/Adverse Reactions: No Known Allergies Allergy (Verified 02/09/20 12:32) Home Medications: TXA Past Medical History - Social History Chew tobacco use (# tins/day): No Frequency of alcohol use: Social Drug Abuse: None Pulmonary Medical History: Reports: Hx Asthma Endocrine Medical History: Reports: Hx Diabetes Mellitus Type 2 Renal/ Medical History: Denies: Hx Peritoneal Dialysis Physical Exam - Vital signs Vitals: Temp Pulse Resp BP Pulse Ox 98.5 F 88 20 124/68 98 02/09/20 12:08 02/09/20 12:08 02/09/20 12:08 02/09/20 12:08 02/09/20 12:08 - Abdominal Inspection: Normal Distension: No distension Bowel sounds: Normal Tenderness: Nontender Organomegaly: No organomegaly Course - Re-evaluation Re-evalutation: 02/09/20 12:40 I have greeted and performed a rapid initial assessment of this patient. A comprehensive ED assessment and evaluation of the patient, analysis of test results and completion of the medical decision making process will be conducted by additional ED providers. - Vital Signs Vital signs: Temp Pulse Resp BP Pulse Ox 98.5 F 88 20 124/68 98 02/09/20 12:08 02/09/20 12:08 02/09/20 12:08 02/09/20 12:08 02/09/20 12:08 Doctor's Discharge - Discharge Referrals: ARDEN JACOBO MD [Primary Care Provider] - Follow up as needed
[2020-02-09 13:08] LABS: APPEARANCE,URINE CLEAR; BILIRUBIN,URINE NEGATIVE (NEGATIVE); COLOR,URINE YELLOW; GLUCOSE, URINE NEGATIVE (NEGATIVE); KETONES,URINE NEGATIVE (NEGATIVE); LEUKOCYTE ESTERASE,URINE NEGATIVE (NEGATIVE); NITRITE,URINE NEGATIVE (NEGATIVE); PROTEIN,URINE NEGATIVE (NEGATIVE); URIC ACID CRYSTALS,URINE RARE /HPF; URINE SPECIFIC GRAVITY 1.014; UROBILINOGEN,URINE NEGATIVE mg/dL (<2.0)
[2020-02-09 13:10] LABS: ABSOLUTE EOSINOPHILS # (AUTO) 0.1 10^3/uL (0.0-0.6); ABSOLUTE LYMPHOCYTES (AUTO) 1.7 10^3/uL (0.5-4.7); ABSOLUTE MONOCYTES (AUTO) 0.7 10^3/uL (0.1-1.4); ABSOLUTE NEUT (AUTO) 6.2 10^3/uL (1.7-8.2); BASOPHILS % (AUTO) 0.4 % (0-2); EOSINOPHILS % (AUTO) 1.6 % (0-6); HEMATOCRIT 36.2 % (36.0-47.0); HEMOGLOBIN 11.9 g/dL (12.0-15.5); LYMPHOCYTES % (AUTO) 19.2 % (13-45); MEAN CORPUSCULAR HEMOGLOBIN 28.1 pg (27.0-33.4); MEAN CORPUSCULAR VOLUME 85 fl (80-97); MONOCYTES % (AUTO) 8.1 % (3-13); PLATELET COUNT 256 10^3/uL (150-450); RED BLOOD COUNT 4.25 10^6/uL (3.72-5.28); RED CELL DISTRIBUTION WIDTH 13.2 % (11.5-14.0); SEGMENTED NEUTROPHILS % (AUTO) 70.7 % (42-78); TOTAL CELLS COUNTED % (AUTO) 100 %; WHITE BLOOD COUNT 8.8 10^3/uL (4.0-10.5)
[2020-02-09 13:28] LABS: ALBUMIN 4.3 g/dL (3.5-5.0); ALKALINE PHOSPHATASE 63 U/L (38-126); ANION GAP 5 (5-19); ASPARTATE AMINO TRANSFERASE 28 U/L (14-36); BILIRUBIN,TOTAL 0.3 mg/dL (0.2-1.3); BLOOD UREA NITROGEN 7 mg/dL (7-20); CALCIUM 9.2 mg/dL (8.4-10.2); CARBON DIOXIDE 29 mmol/L (22-30); CHLORIDE 104 mmol/L (98-107); GLUCOSE 92 mg/dL (75-110); POTASSIUM 4.1 mmol/L (3.6-5.0); TOTAL PROTEIN 7.3 g/dL (6.3-8.2)
--- NOTE | 2020-02-09 14:27 | RADIOLOGY REPORT (SQ) ---
EXAM DESCRIPTION: U/S NON OB PEL TV W/DOPPLER IMAGES COMPLETED DATE/TIME: 02/09/2020 2:15 pm REASON FOR STUDY: Abnormal vaginal bleeding x 4 months COMPARISON: None. TECHNIQUE: Dynamic and static grayscale images acquired of the pelvis via transvaginal approach and recorded on PACS. Additional selected color Doppler and spectral images recorded. LIMITATIONS: None. FINDINGS: UTERUS: Contour normal. No mass. ENDOMETRIAL STRIPE: No focal or generalized thickening. No masses. CERVIX: The cervix measures 2.8 cm in length. No nabothian cysts. RIGHT OVARY AND DOPPLER: A 3.2 x 3.1 x 3.0 cm cyst. Normal arterial vascular flow without evidence for torsion. LEFT OVARY AND DOPPLER: Normal size. No worrisome masses. Normal arterial vascular flow without evide nce for torsion. FREE FLUID: None noted. OTHER: No other significant finding. MEASUREMENTS: UTERUS: 10.0 x 4.7 x 4.0 cm ENDOMETRIAL STRIPE: 8 mm RIGHT OVARY: 5.6 x 4.7 x 3.2 cm LEFT OVARY: 3.0 x 2.5 x 2.2 cm IMPRESSION: 1. Right ovarian cyst measures 3.2 x 3.1 x 3.0 cm. Please see comments below. COMMENT: Followup of asymptomatic benign ovarian cysts detected by ultrasound in PREMENOPAUSAL caterina ents Simple cyst: *? 5 cm: no followup *> 5 and ? 7 cm: yearly followup ultrasound *> 7 cm: further imaging (MRI) or surgical followup Hemorrhagic cyst *? 5 cm: no followup *> 5 cm: 6-12 week followup ultrasound to ensure resolution Endometrioma *Initial followup ultrasound 6-12 weeks, then yearly if not surgically removed Dermoid *Yearly followup ultrasound if not surgically removed Note: If cyst is clinically symptomatic or otherwise concerning, other followup may be warranted. Based on recommendations of the Society for Radiologists in Ultrasound Consensus Conference Statement 2010 on management of asymptomatic ovarian and other adnexal cysts imaged at ultrasound. TECHNICAL DOCUMENTATION: JOB ID: [id number] 2010 [employer]- All Rights Reserved Rev-12/14 Reading location - IP/workstation name: [email or web address]
--- NOTE | 2020-02-09 15:53 | ER Document Report ---
ED GI/ - General Chief Complaint: Vaginal Bleeding Stated Complaint: ABNORMAL VAGINAL BLEEDING Time Seen by Provider: 02/09/20 12:34 Primary Care Provider: [facility] [Provider Group] - Follow up as needed [facility]Provider Group[facility] - Follow up as needed SUZANNE HAWK MD [EMERITUS] - Follow up as needed GERHARD DAWN MD [EMERITUS] - Follow up as needed Mode of Arrival: Ambulatory Information source: Patient Notes: Patient is a 34-year-old female presenting to the emergency department chief complaint of vaginal bleeding. Patient reports vaginal bleeding has been ongoing for last 4 months. She states that she has passed a golf ball and tennis ball size clots the last few days. She did go to an urgent care in November and was placed on 4 days of TXA. At that time patient had declined being put on control because she states she was hoping to get . She is a G2, P1. She has not been seen by an CLIENT SERVICES ADMINISTRATOR or had a Pap smear done in the last 12 years. She denies any other symptoms to include fever, chills, nausea, vomiting or abdominal pain. TRAVEL OUTSIDE OF THE [place] IN LAST 30 DAYS: No - Related Data Allergies/Adverse Reactions: No Known Allergies Allergy (Verified 02/09/20 12:32) Home Medications: TXA Past Medical History - General Information source: Patient - Social History Smoking Status: Former Smoker Chew tobacco use (# tins/day): No Frequency of alcohol use: Social Drug Abuse: None Family History: DM Patient has homicidal ideation: No Pulmonary Medical History: Reports: Hx Asthma Endocrine Medical History: Reports: Hx Diabetes Mellitus Type 2 Renal/ Medical History: Denies: Hx Peritoneal Dialysis Review of Systems - Review of Systems Female Genitourinary: Vaginal bleeding -: Yes All other systems reviewed and negative Physical Exam - Vital signs Vitals: Temp Pulse Resp BP Pulse Ox 98.5 F 88 20 124/68 98 02/09/20 12:08 02/09/20 12:08 02/09/20 12:08 02/09/20 12:08 02/09/20 12:08 - Notes Notes: PHYSICAL EXAMINATION: GENERAL: Well-appearing, well-nourished and in no acute distress. HEAD: Atraumatic, normocephalic. EYES: Pupils equal round and reactive to light, extraocular movements intact, conjunctiva are normal. ENT: Nares patent, oropharynx clear without exudates. Moist mucous membranes. NECK: Normal range of motion, supple without lymphadenopathy LUNGS: Breath sounds clear to auscultation bilaterally and equal. No wheezes rales or rhonchi. HEART: Regular rate and rhythm without murmurs ABDOMEN: Soft, nontender, nondistended abdomen. No guarding, no rebound. No masses appreciated. Female : Normal external genitalia, small amount of dark red blood in the vaginal vault. No cervical motion or adnexal tenderness. Musculoskeletal: Normal range of motion, no pitting or edema. No cyanosis. NEUROLOGICAL: Cranial nerves grossly intact. Normal speech, normal gait. Normal sensory, motor exams PSYCH: Normal mood, normal affect. SKIN: Warm, Dry, normal turgor, no rashes or lesions noted. Course - Re-evaluation Re-evalutation: 02/09/20 16:14 Patient appears well, nontoxic, vital signs reviewed and are within normal limits. CBC and CMP are unremarkable. negative. Urinalysis shows no urinary tract infection. Transvaginal ultrasound was performed shows a right ovarian cyst but no other abnormality that would cause the bleeding. Patient is now agreeable to take a 10-day course of Provera and she will follow-up with gynecology. - Vital Signs Vital signs: Temp Pulse Resp BP Pulse Ox 98.5 F 88 20 124/68 98 02/09/20 12:08 02/09/20 12:08 02/09/20 12:08 02/09/20 12:08 02/09/20 12:08 - Laboratory Result Diagrams: 02/09/20 12:50 02/09/20 12:50 Laboratory results interpreted by me: 02/09/20 02/09/20 12:50 12:50 Hgb 11.9 L Urine Blood LARGE H Discharge - Discharge Clinical Impression: Vaginal bleeding Condition: Stable Disposition: HOME, SELF-CARE Additional Instructions: It is important for you to follow-up with a assembly line upholsterer for further evaluation of your vaginal bleeding. I have enclosed the phone numbers of all of the assembly line upholsterer in [facility]. If they are unable to see you you may also start [facility] at [facility]. Take the medication as prescribed. Return to the emergency department if you develop worsening symptoms such as bleeding through more than 1 pad per hour for 4 hours consecutively or you feel faint or dizzy or pass out. Prescriptions: Medroxyprogesterone Acet [Provera 10 Mg Tablet] 10 mg PO DAILY #10 tablet Referrals: SUZANNE HAWK MD [EMERITUS] - Follow up as needed GERHARD DAWN MD [EMERITUS] - Follow up as needed [facility] [Provider Group] - Follow up as needed [facility] [Provider Group] - Follow up as needed
[2020-02-09 16:43] VITALS: BP 126/75
== END 2020-02-09 16:44 | disposition home or self-care (01) ==
LOC: ER 11:59
DX: N93.9 Abnormal uterine and vaginal bleeding, unspecified (principal); Z87.891 Personal history of nicotine dependence; E11.9 Type 2 diabetes mellitus without complications; J45.909 Unspecified asthma, uncomplicated
CPT/HCPCS: 36415; 76830; 80053; 81001; 84703; 85025; 93976; 99283